=== PATIENT | female | born 1940 | race Caucasian/White ===

== ENCOUNTER → 2017-10-21 | Outpatient (CLI) | payer MEDICARE, OTHER ==
[~2017-10-21] MED LIST: AMLO5; ATOR20; Azor 10-20 MG1 EACH; ESOM20; ESOM20 PO; LAVAP17G; LOSA25; METPRE4DP PO; OMEP20ER; Percocet 5-3251 EACH PO; TRIHYD253A; Valium5 MG PO; [UNRECOGNIZED DRUG - REMARK]
== END ==
LOC: LAB SHORT 10:45 → PLD 10:45
DX: D48.5 Neoplasm of uncertain behavior of skin (principal)
CPT/HCPCS: 88305

== ENCOUNTER 2018-10-04 12:15 | Day surgery (SDC) | payer MEDICARE, OTHER ==
[~2018-10-04] VITALS: Ht 188 cm; Wt 75.3 kg
[~2018-10-04 12:15] MED LIST changes: +ACET325 PO; +AMIT25 PO; +AMLO5 PO; +HYOS.125 SL; +LINZESS290 MCG PO; +LOSARTAN-HCTZ1 EAC1 PO; +LOVA40 PO; +OXYB5 PO; +POTA10T PO; +POTCHL10ER PO; +Prilosec Otc20 MG PO; +TRAZ50 PO
--- NOTE | 2018-10-04 12:44 | NUR ---
History, Chart, Medications and Allergies reviewed before start of procedure. Patient confirms NPO status and agrees with scheduled surgery. Patient States Post-Procedure ride home has been arranged with her , delmis.
--- NOTE | 2018-10-04 12:46 | NUR ---
Lungs clear T/O to Auscultation.
--- NOTE | 2018-10-04 14:28 | NUR ---
10/04/18 1428 Valentina Weeks History, Chart, Medications and Allergies reviewed before start of procedure.PATIENT DETERMINED TO BE ASA APPROPRIATE FOR PROPOFOL SEDATION PRIOR TO START OF PROCEDURE BY MONITOR INTACT WITH CONTINUOUS PULSE OXIMETRY AND INTERMITTENT BP. 3-LEAD EKG REVIEWED WITH PHYSICIAN PRIOR TO START OF PROCEDURE.O2 VIA N/C INTACT THROUGHOUT SEDATION/PROCEDURE.
--- NOTE | 2018-10-04 15:52 | NUR ---
Patient up to Ambulate independently. Gait steady. Discharge instructions reviewed with patient. Patient verbalizes understanding. Copy given to patient to take home. Patient States Post-Procedure ride home has been arranged. Discharged via wheelchair to private car for ride home.
== END 2018-10-04 22:45 | disposition home or self-care (01) ==
LOC: ORSCMMR 12:15 → ORD 14:00 → ORSCMMR 14:00
PROVIDERS: Student in an Organized Health Care Education/Training Program
PROC: 0DB58ZX Excision of Esophagus, Via Natural or Artificial Opening Endoscopic, Diagnostic (ICD-10-PCS; principal; 2018-10-04 14:00)
PROC: 0DB68ZX Excision of Stomach, Via Natural or Artificial Opening Endoscopic, Diagnostic (ICD-10-PCS; principal; 2018-10-04 14:00)
PROC: 0DBP8ZX Excision of Rectum, Via Natural or Artificial Opening Endoscopic, Diagnostic (ICD-10-PCS; principal; 2018-10-04 14:00)
DX: R13.10 Dysphagia, unspecified (principal); K62.1 Rectal polyp; K29.70 Gastritis, unspecified, without bleeding; K31.7 Polyp of stomach and duodenum; K64.8 Other hemorrhoids; K21.9 Gastro-esophageal reflux disease without esophagitis; Z86.010 Personal history of colon polyps; K59.09 Other constipation; I10 Essential (primary) hypertension; Z87.891 Personal history of nicotine dependence; E66.9 Obesity, unspecified; Z68.30 Body mass index [BMI] 30.0-30.9, adult; Z79.899 Other long term (current) drug therapy
CPT/HCPCS: 88305; 88341; 88342; J7120

== ENCOUNTER → 2019-08-17 | Outpatient (CLI) | payer MEDICARE, OTHER ==
[2019-08-17 17:11] LABS: Source, Urine Clean Catch
[2019-08-17 18:27] LABS: Bilirubin, Urine Neg (Neg); Blood, Urine 1+ (Neg); Glucose Qualitative, Urine Neg (Neg); Ketones, Urine 1+ (Neg); Leukocyte Esterase, Urine Neg (Neg); Nitrite, Urine Neg (Neg); Protein, Urine Neg (Neg); Urobilinogen, Urine NORM (Normal); pH, Urine 6.5 (5.0-8.0)
[2019-08-17 18:46] LABS: Appearance, Urine Clear (Clear); Color, Urine Yellow (P-Yellow)
[2019-08-17 18:47] LABS: Bacteria Few /hpf; Squamous Epithelial Cells Few /hpf (Few); White Blood Cells, Urine 0-2 /hpf (0-5)
== END | disposition home or self-care (01) ==
LOC: LAB 15:55 → LAB SHORT 15:55
PROVIDERS: Obstetrics & Gynecology
DX: R30.0 Dysuria (principal)
CPT/HCPCS: 81001

== ENCOUNTER → 2020-03-28 | Outpatient (CLI) | payer MEDICARE, OTHER | END | disposition home or self-care (01) | LOC: LAB SHORT 11:57 → PLD 11:57 | DX: L21.9 Seborrheic dermatitis, unspecified (principal); D48.5 Neoplasm of uncertain behavior of skin | CPT/HCPCS: 88305 ==

== ENCOUNTER 2020-06-18 10:28 | Day surgery (SDC) | payer MEDICARE, OTHER ==
[~2020-06-18] VITALS: Ht 157.5 cm; Wt 74.4 kg
--- NOTE | 2020-06-18 12:07 | NUR ---
06/18/20 1207 Sheri Maravilla GROUNDING PAD ON RIGHT CALF
== END 2020-06-18 12:29 | disposition home or self-care (01) ==
LOC: ORSCSDS 10:28
PROVIDERS: Student in an Organized Health Care Education/Training Program
PROC: 0DB78ZX Excision of Stomach, Pylorus, Via Natural or Artificial Opening Endoscopic, Diagnostic (ICD-10-PCS; principal; 2020-06-18 11:45)
PROC: 0DB68ZX Excision of Stomach, Via Natural or Artificial Opening Endoscopic, Diagnostic (ICD-10-PCS; principal; 2020-06-18 11:45)
DX: K31.7 Polyp of stomach and duodenum (principal); K29.70 Gastritis, unspecified, without bleeding; K21.9 Gastro-esophageal reflux disease without esophagitis; K44.9 Diaphragmatic hernia without obstruction or gangrene; I10 Essential (primary) hypertension; E78.5 Hyperlipidemia, unspecified; Z79.899 Other long term (current) drug therapy; Z87.891 Personal history of nicotine dependence
CPT/HCPCS: 88305; 88341; 88342; J2405; J2704; J7120

== ENCOUNTER 2024-05-26 08:35 | Day surgery (SDC) | payer OTHER ==
[~2024-05-26] VITALS: Ht 157.5 cm; Wt 70.7 kg
[~2024-05-26 08:35] MED LIST changes: +Bupivacaine 0.5% HCl 5 MG/ML 30MLVIAL ONE; +NS 500 ML IV ONE
[2024-05-26] MEDS ORDERED: NS 50 ML IV ONE (09:02)
[2024-05-26] MEDS ORDERED: CeFAZolin Sodium 2,000 MG VIAL ONE (09:02)
[2024-05-26] MEDS ORDERED: NS 500 ML IV ONE (09:05)
[2024-05-26] MEDS ORDERED: propofoL 20 ML IV ONE (09:10)
[2024-05-26] MEDS ORDERED: FentaNYL Citrate 50 MCG/ML 2 ML Injection ONE (09:10)
--- NOTE | 2024-05-26 10:31 | NUR ---
05/26/24 1031 Glenda Amin TIME OUT COMPLETED AT 922 BY THIS RN FOR AN INTRASCALENE BLOCK WITH DR. COYLE. PT ATTACHED TO BP, PULSE OX AND 3 LEAD EKG DURING PROCEDURE. INJECTION STARTED AT 922. PROCEDURE ENDED AT 925. SONOSITE PHOTO AND NERVE BLOCK NOTED HANDED TO DR. COYLE. PT TOLERATED WELL.
[2024-05-26] MEDS ORDERED: Lactated Ringer's 1,000 ML IV ONE (10:51)
[2024-05-26] MEDS ORDERED: Dexamethasone Sod Phos 10 MG/ML 1ML VIAL ONE (11:24)
[2024-05-26] MEDS ORDERED: Ondansetron HCl 2 MG / ML 2ML Vial ONE (11:24)
--- NOTE | 2024-05-26 11:44 | NUR ---
05/26/24 1144 PHILLIP HILARIO PT DENIES PAIN AND NAUSEA. STATES WARM ENOUGH. PT SMILES BUT FALLS BACK TO SLEEP QUICKLY. CURRENTLY ON 6L O2 PER NC.
[2024-05-26 11:49] VITALS: BP 151/69
--- NOTE | 2024-05-26 11:51 | NUR ---
05/26/24 1151 PHILLIP HILARIO O2 ON 4L VIA NC IS RUNNING 94%. PT NEEDS TO USE BATHROOM. WILL TAKE BY WC WITH O2
== END 2024-05-26 13:00 | disposition home or self-care (01) ==
LOC: ORSCSDS 08:35
PROVIDERS: Orthopaedic Surgery
PROC: 0RQT0ZZ Repair Left Carpometacarpal Joint, Open Approach (ICD-10-PCS; principal; 2024-05-26 10:15)
DX: M18.12 Unilateral primary osteoarthritis of first carpometacarpal joint, left hand (principal); I10 Essential (primary) hypertension; K21.9 Gastro-esophageal reflux disease without esophagitis; Z79.899 Other long term (current) drug therapy
CPT/HCPCS: C1713; J0690; J1100; J2405; J2704; J3010; J7040; J7120